=== PATIENT | male | born 1935 | race Caucasian/White ===

== ENCOUNTER 2018-08-04 07:04 | Observation (INO) ==
--- NOTE | 2018-08-04 07:18 | Emergency Department Note ---
Disposition Clinical Impression: Vertigo, Right leg weakness, Numbness and tingling of right leg, Facial droop Disposition: Admitted As Inpatient Condition: Good Referrals: Miguel A Akbar DO [Primary Care Provider] - Forms: ED Satisfaction Letter Time of Disposition: 07:47 Neuro HPI - General Chief Complaint: ED Neuro Symptoms/Deficit Stated Complaint: dizziness and fall, r leg numb/right facial droop Time Seen by Provider: 08/04/18 07:05 Source: patient, EMS Mode of arrival: EMS Limitations: no limitations Nursing Notes Reviewed: Yes Vital Signs Reviewed: Yes - History of Present Illness HPI Narrative: Patient is an 82-year-old male with past medical history history of CVA, residual right lower extremity weakness and decreased sensation, high cholesterol, takes daily simvastatin and aspirin. Presents today due to concern for right lower extremity weakness and numbness that are worse than usual baseline, right-sided facial droop, dizziness. Presented via EMS. EMS reported glucose of 200s. Patient states that he went to bed around 9 PM last night, woke up at 6 AM this morning and had dizziness. He states that the dizziness worse and when he sat up but did not worsen when he moved his head left and right. He describes as the room spinning. He also admits to increased weakness and numbness of the right lower extremity. He does report a residual baseline weakness and numbness of the right lower extremity but states that this is worse today. He also admits to a fall prior to arrival due to the dizziness that he was experiencing when he woke up. Denies any injuries of his extremities. Denies any chest pain, shortness breath, nausea, vomiting, fevers, diarrhea, abdominal pain. He does report that he took 2 baby aspirin this morning prior to arrival to see if this would help with his dizziness and states that it did not. Denies taking any other medications, any other blood thinners. Denies any other numbness, tingling, weakness anywhere else on any other extremities. No visual changes. No headaches. - Related Data Home Medications: Home Medications Medication Instructions Recorded Confirmed Aspirin 650 mg PO ONCE 08/04/18 08/04/18 Aspirin [Lo-Dose Aspirin EC] 81 mg PO HS 08/04/18 08/04/18 Cholecalciferol (D-3) [Vitamin D] 2,000 unit PO DAILY 08/04/18 08/04/18 Metformin HCl [Metformin HCl ER] 500 mg PO HS 08/04/18 08/04/18 Simvastatin [Zocor] 20 mg PO HS 08/04/18 08/04/18 Allergies/Adverse Reactions: Allergies Allergy/AdvReac Type Severity Reaction Status Date / Time lidocaine Allergy Swelling Verified 08/04/18 08:04 of Lip/Tongue/Throat food starch Allergy Severe Anaphylaxis Uncoded 08/04/18 08:00 All systems ED: reviewed and negative except as stated. Constitutional: Denies: fever Cardiovascular: Denies: chest pain Respiratory: Denies: cough, dyspnea Gastrointestinal: Denies: abdominal pain, nausea, vomiting Genitourinary: Denies: urgency, dysuria Integumentary: Denies: rash Neurological: Denies: headache, weakness, numbness Past Medical History - Past Medical History Attestation: Yes The following information was validated with the patient. Source: patient Medical history: Reports: CVA, diabetes, kidney stones Surgical history: Reports: other Psychiatric history: Reports: no psych history - Social History Smoking Status: Never smoker Smokeless Tobacco Status: No Alcohol use: Reports: none Drug use: Reports: none Physical Exam - General Limitations: no limitations General appearance: alert, in no apparent distress - Head Head exam: atraumatic, normocephalic, normal inspection - Eye Eye exam: Present: normal appearance, PERRL, EOMI - ENT ENT exam: normal oropharynx, mucous membranes moist, other (right nasolabial fold flattening) - Neck Neck exam: Present: normal inspection, full ROM, trachea midline - Chest Chest inspection: Present: normal inspection, symmetric chest wall rise - Respiratory Respiratory exam: Present: normal lung sounds bilaterally - Cardiovascular Cardiovascular exam: Present: regular rate, normal rhythm, normal heart sounds - Abdominal Exam Abdominal exam: Present: soft, Non-Tender. Absent: tenderness, distention, guarding, rebound, rigidity - Extremities Exam Extremities exam: Present: normal inspection, full ROM. Absent: tenderness, pedal edema - Neurological Exam Neurological exam: Present: alert, oriented X3 - Expanded Neurological Exam Patient oriented to: Present: person, place, time Speech: Present: fluid speech Cranial nerves: EOM function (II, III, IV, ): Normal, facial sensation (V): Normal, facial palsy (VII): Abnormal Right (right nasolablial flattening) Cerebellar function: finger to nose: Normal Motor strength - LUE: 5/5 Motor strength - RUE: 5/5 Motor strength - RLE: 4/5 Sensory exam upper extremity: light touch: Normal Sensory exam lower extremity: light touch: Abnormal Right (decreased sensation right leg, worse from baseline from previous stroke) Coma Scale Eye Opening: Spontaneous Coma Scale Motor Response: Obeys Commands Coma Scale Verbal Response: Oriented Coma Scale Total: 15 - Psychiatric Psychiatric exam: Present: normal affect, normal mood - Skin Skin exam: Present: warm, dry, intact, normal color Course Course Narrative: Physical exam shows drift of the right lower extremity, decreased sensation of the right lower extremity, mild droop of the right nasolabial fold. NIH 2. No overt ataxia noted on exam. Patient's vertigo was not able to be reproduced with head motion testing on my exam. With current complaints, there is concern for stroke, we will likely posterior strep due to symptoms of dizziness. We will proceed with stroke alert as this is within the 10 hour time window. Basic labs, CBC, BMP, troponin, EKG, chest x-ray, CT the head are ordered. After workup, we will likely admit to the hospitalist for MRI for further evaluation of posterior circulation. 19:[address] negative for any acute intracranial abnormality. Repeat NIH score by [facility] neurologist on telemetry stroke can was NIH of 1. Patient has right nasolabial droop but no longer has any right lower extremity drift. She recommends further imaging such as MRI and MRA of the head and neck for further assessment. She does believe that patient can stay here for further care. Discussed this with the patient and he was agreeable with this plan. Currently waiting on labs come back. EKG shows sinus bradycardia with no acute ST elevation or depression. Patient did receive aspirin at home prior to arrival. Waiting on lab work and chest x-ray and we will admit for further stroke workup. 19:48 labs show hyperglycemia. Troponin negative. Chest x-ray negative for any acute cardiopulmonary process. We will proceed with admission. Patient was given meclizine for vertigo. Vital Signs Temperature 98.6 F 08/04/18 07:23 Pulse Rate 56 08/04/18 07:23 Respiratory Rate 20 08/04/18 07:23 Blood Pressure 177/88 08/04/18 07:23 O2 Sat by Pulse Oximetry 100 08/04/18 07:23 Temperature 98.6 F 08/04/18 07:23 Pulse Rate 56 08/04/18 07:45 Respiratory Rate 20 08/04/18 07:45 Blood Pressure 142/131 08/04/18 07:45 O2 Sat by Pulse Oximetry 100 08/04/18 07:32 Oxygen Delivery Oxygen Delivery Room Air Neuro Symptoms/Deficit - MDM Narrative Medical decision making narrative: Physical exam shows drift of the right lower extremity, decreased sensation of the right lower extremity, mild droop of the right nasolabial fold. NIH 2. No overt ataxia noted on exam. Patient's vertigo was not able to be reproduced with head motion testing on my exam. With current complaints, there is concern for stroke, we will likely posterior strep due to symptoms of dizziness. We will proceed with stroke alert as this is within the 10 hour time window. Basic labs, CBC, BMP, troponin, EKG, chest x-ray, CT the head are ordered. After workup, we will likely admit to the hospitalist for MRI for further evaluation of posterior circulation. 19:[address] negative for any acute intracranial abnormality. Repeat NIH score by [facility] neurologist on telemetry stroke can was NIH of 1. Patient has right nasolabial droop but no longer has any right lower extremity drift. She recommends further imaging such as MRI and MRA of the head and neck for further assessment. She does believe that patient can stay here for further care. Discussed this with the patient and he was agreeable with this plan. Currently waiting on labs come back. EKG shows sinus bradycardia with no acute ST elevation or depression. Patient did receive aspirin at home prior to arrival. Waiting on lab work and chest x-ray and we will admit for further stroke workup. 19:48 labs show hyperglycemia. Troponin negative. Chest x-ray negative for a ny acute cardiopulmonary process. We will proceed with admission. Patient was given meclizine for vertigo. - Medical Records Medical records reviewed: Yes I reviewed the patient's medical records. - Lab Data Lab results reviewed: Yes I reviewed the patient's lab results. Result diagrams: 08/04/18 07:17 08/04/18 07:17 Lab Results 08/04/18 08/04/18 08/04/18 Range/Units 07:15 07:17 07:17 WBC 7.4 (4.3-11.1) K/mcL RBC 4.22 (4.19-5.50) M/mcL Hgb 13.2 (12.9-16.9) g/dL Hct 37.5 (37.5-50.1) % MCV 88.9 (83.0-100.0) fL MCH 31.3 (28.0-33.3) pg MCHC 35.2 (31.6-35.5) g/dL RDW 12.6 (11.5-14.5) % Plt Count 144 (140-400) K/mcL MPV 10.4 (9.4-12.4) fL PT 12.7 H (9.4-12.1) Seconds INR 1.1 APTT 31.8 (26.0-36.0) Seconds Sodium (136-145) mEq/L Potassium (3.5-5.1) mEq/L Chloride (98-107) mEq/L Carbon Dioxide (23-29) mEq/L BUN (8-23) mg/dL Creatinine (0.70-1.30) mg/dL Est GFR ( Amer) (> 60) Est GFR (Non-Af Amer) (> 60) BUN/Creatinine Ratio (6-26) Glucose (70-105) mg/dL POC Glucose 224 H (70-99) mg/dL Calculated Osmolality (280-300) Calcium (8.6-10.3) mg/dL Troponin I (< 0.04) ng/mL 08/04/18 Range/Units 07:17 WBC (4.3-11.1) K/mcL RBC (4.19-5.50) M/mcL Hgb (12.9-16.9) g/dL Hct (37.5-50.1) % MCV (83.0-100.0) fL MCH (28.0-33.3) pg MCHC (31.6-35.5) g/dL RDW (11.5-14.5) % Plt Count (140-400) K/mcL MPV (9.4-12.4) fL PT (9.4-12.1) Seconds INR APTT (26.0-36.0) Seconds Sodium 137 (136-145) mEq/L Potassium 4.2 (3.5-5.1) mEq/L Chloride 105 (98-107) mEq/L Carbon Dioxide 26 (23-29) mEq/L BUN 13 (8-23) mg/dL Creatinine 0.80 (0.70-1.30) mg/dL Est GFR ( Amer) > 60 (> 60) Est GFR (Non-Af Amer) > 60 (> 60) BUN/Creatinine Ratio 16 (6-26) Glucose 234 H (70-105) mg/dL POC Glucose (70-99) mg/dL Calculated Osmolality 292 (280-300) Calcium 9.4 (8.6-10.3) mg/dL Troponin I < 0.03 (< 0.04) ng/mL - Radiology Data Radiology results reviewed: Yes I reviewed the patient's radiology results. Head CT 08/04/18 07:15 IMPRESSION: No acute intracranial abnormality. Findings were discussed with Alejandro Renteria at 7:42 am on 08/04/2018. D/ / Raoul Jones MD / Raoul Jones MD Interpreting Provider: Raoul Jones MD Chest X-Ray 08/04/18 07:16 IMPRESSION: 1. No active pulmonary disease. D/ / Cal Ramirez MD / Cal Ramirez MD Interpreting Provider: Cal Ramirez MD - EKG Data EKG attestation: Yes I reviewed and interpreted this EKG. EKG results narrative: 08/04/2018 at 07:15. Sinus rhythm. Rate 55. MA 171. QRS 116. QTC 431. Normal axis. No acute ST elevation or depression. NIH Stroke Scale - Level of Consciousness LOC: Alert - LOC Questions LOC Questions: Answers both correctly - LOC Commands LOC Commands: Performs both correctly - Best Gaze Best Gaze: Normal - Visual Visual: No visual loss - Facial Palsy Facial Palsy: Minor asymmetry on smiling, flattened nasolabial fold - Motor Arms Motor Arm-Left: No drift for 10 seconds Motor Arm-Right: No drift for 10 seconds - Motor Legs Motor Leg-Left: No drift for 5 seconds Motor Leg-Right: Drift, does NOT hit bed - Limb Ataxia Limb Ataxia: Absent of affected limb too weak to perform exam - Sensory Sensory: Normal - Best Language Best Language: No aphasia - Dysarthria Dysarthria: Normal - Extinction and Inattention Extinction and Inattention: Normal - NIHSS Total Score NIHSS Total Score: 2 TPA Checklist - Eligibilty for IV tPA 1. LKW equal to or less than 4.5 hours be before treatment: No - LKW: 3-4.5 hrs Add. Warnings/Precautions Patient/family understanding: The patient/family members have been counseled and understood the risk, benefit, and alternatives of treatment. S.B.A.R. - S.B.A.R. Situation: Demographics, MOA Background: Presenting Complaint, Relevant PMH, Meds, & Allergies Assessment: Vital Signs, Course and respsone to treatment, Exam Concerns, Patient/Family Expectation, Pertinant Lab Results Recommendation: Barrier(s) to disposition, Recommendation based on pending studies, treatments, or consults S.B.A.R. Report Given to: Dr. Gary
--- NOTE | 2018-08-04 07:19 | Emergency Department Note ---
Disposition Clinical Impression: Vertigo, Right leg weakness, Numbness and tingling of right leg, Facial droop Disposition: Admitted As Inpatient Condition: Good General Adult HPI - General Chief complaint: ED Neuro Symptoms/Deficit Stated complaint: dizziness and fall, r leg numb/right facial droop Time Seen by Provider: 08/04/18 07:05 - Related Data Home Medications Medication Instructions Recorded Confirmed Aspirin [Lo-Dose Aspirin EC] 81 mg PO HS 08/04/18 08/04/18 Cholecalciferol (D-3) [Vitamin D] 2,000 unit PO DAILY 08/04/18 08/04/18 Metformin HCl [Metformin HCl ER] 500 mg PO HS 08/04/18 08/04/18 RX: Aspirin 650 mg PO ONCE 08/04/18 08/04/18 RX: Simvastatin [Zocor] 20 mg PO HS 08/04/18 08/04/18 Allergies Allergy/AdvReac Type Severity Reaction Status Date / Time lidocaine Allergy Swelling Verified 08/04/18 08:04 of Lip/Tongue/Throat food starch Allergy Severe Anaphylaxis Uncoded 08/04/18 08:00 Past Medical History - Past Medical History Medical history: Reports: diabetes, kidney stones Surgical history: Reports: other Psychiatric history: Reports: no psych history - Social History Smoking Status: Never smoker Smokeless Tobacco Status: No Alcohol use: Reports: none Drug use: Reports: none Course Vital Signs Temperature 98.6 F 08/04/18 07:23 Pulse Rate 56 08/04/18 07:23 Respiratory Rate 20 08/04/18 07:23 Blood Pressure 177/88 08/04/18 07:23 O2 Sat by Pulse Oximetry 100 08/04/18 07:23 Temperature 98.2 F 08/04/18 14:08 Pulse Rate 64 08/04/18 14:08 Respiratory Rate 18 08/04/18 14:08 Blood Pressure 146/66 08/04/18 14:08 O2 Sat by Pulse Oximetry 99 08/04/18 14:08 Oxygen Delivery Oxygen Delivery Room Air Medical Decision Making - Lab Data Result diagrams: 08/04/18 07:17 08/04/18 07:17 Lab Results 08/04/18 08/04/18 08/04/18 Range/Units 07:15 07:17 07:17 WBC 7.4 (4.3-11.1) K/mcL RBC 4.22 (4.19-5.50) M/mcL Hgb 13.2 (12.9-16.9) g/dL Hct 37.5 (37.5-50.1) % MCV 88.9 (83.0-100.0) fL MCH 31.3 (28.0-33.3) pg MCHC 35.2 (31.6-35.5) g/dL RDW 12.6 (11.5-14.5) % Plt Count 144 (140-400) K/mcL MPV 10.4 (9.4-12.4) fL PT 12.7 H (9.4-12.1) Seconds INR 1.1 APTT 31.8 (26.0-36.0) Seconds Sodium (136-145) mEq/L Potassium (3.5-5.1) mEq/L Chloride (98-107) mEq/L Carbon Dioxide (23-29) mEq/L BUN (8-23) mg/dL Creatinine (0.70-1.30) mg/dL Est GFR ( Amer) (> 60) Est GFR (Non-Af Amer) (> 60) BUN/Creatinine Ratio (6-26) Glucose (70-105) mg/dL POC Glucose 224 H (70-99) mg/dL Calculated Osmolality (280-300) Calcium (8.6-10.3) mg/dL Troponin I (< 0.04) ng/mL 08/04/18 Range/Units 07:17 WBC (4.3-11.1) K/mcL RBC (4.19-5.50) M/mcL Hgb (12.9-16.9) g/dL Hct (37.5-50.1) % MCV (83.0-100.0) fL MCH (28.0-33.3) pg MCHC (31.6-35.5) g/dL RDW (11.5-14.5) % Plt Count (140-400) K/mcL MPV (9.4-12.4) fL PT (9.4-12.1) Seconds INR APTT (26.0-36.0) Seconds Sodium 137 (136-145) mEq/L Potassium 4.2 (3.5-5.1) mEq/L Chloride 105 (98-107) mEq/L Carbon Dioxide 26 (23-29) mEq/L BUN 13 (8-23) mg/dL Creatinine 0.80 (0.70-1.30) mg/dL Est GFR ( Amer) > 60 (> 60) Est GFR (Non-Af Amer) > 60 (> 60) BUN/Creatinine Ratio 16 (6-26) Glucose 234 H (70-105) mg/dL POC Glucose (70-99) mg/dL Calculated Osmolality 292 (280-300) Calcium 9.4 (8.6-10.3) mg/dL Troponin I < 0.03 (< 0.04) ng/mL Attestation Statement - Attestation Attestation: I examined this patient and my medical decision-making was reviewed with the Resident Physician. I agree with the documented findings, disposition and treatment plan as described except to the extent set forth below. [id number] time provided Patient arrives by EMS from home. He complains of dizziness. He complains of numbness of his right foot. He is alert and lucid and appears in no acute distress on exam. Please see resident's note for full neurologic exam. NIH 2. He went to bed at 21:00 last night symptom-free. He awoke at 06:00 with symptoms this morning.
[2018-08-04 07:27] LABS: Hematocrit 37.5 % (37.5-50.1); Hemoglobin 13.2 g/dL (12.9-16.9); Mean Corpuscular HGB Conc 35.2 g/dL (31.6-35.5); Mean Corpuscular Hemoglobin 31.3 pg (28.0-33.3); Mean Corpuscular Volume 88.9 fL (83.0-100.0); Mean Platelet Volume 10.4 fL (9.4-12.4); Platelet Count 144 K/mcL (140-400); Red Blood Count 4.22 M/mcL (4.19-5.50); Red Cell Distribution Width 12.6 % (11.5-14.5)
[2018-08-04 07:43] LABS: INR 1.1; Prothrombin Time 12.7 Seconds (9.4-12.1)
[2018-08-04 07:46] LABS: Activated Partial Thrombo Time 31.8 Seconds (26.0-36.0)
[2018-08-04 07:47] LABS: BUN/Creatinine Ratio 16 (6-26); Blood Urea Nitrogen 13 mg/dL (8-23); Calcium 9.4 mg/dL (8.6-10.3); Carbon Dioxide 26 mEq/L (23-29); Chloride 105 mEq/L (98-107); Glucose 234 mg/dL (70-105); Osmolality,Calculated 292 (280-300); Potassium 4.2 mEq/L (3.5-5.1); Sodium 137 mEq/L (136-145); Troponin I < 0.03 ng/mL (< 0.04); eGFR For Non-African Americans > 60 (> 60)
--- NOTE | 2018-08-04 08:25 | Internal Med History&Physical ---
Date of Encounter: 08/04/18 Time of Encounter: 08:20 Internal Medicine - H&P: HPI Chief complaint: Dizziness Admitted From: Home Plans for Post Hospital Care: Home History of present illness: Mr. 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 As per patient he woke up about 4 AM in the morning and immediately felt dizzy as he was laying down. He sat up in bed and his dizziness became better he walked to the bathroom and had a fall as the railing that he normally holds onto to get up from the toilet broke off but he denies any head trauma. He went back to bed to lay down but he immediately began to become dizzy again. He describes his dizziness as the sensation of the room spinning around him worse when he lays down and better when he sits that. Rapid head movements from [id number] exacerbates his dizziness. In addition to dizziness he also complains of ringing in his ears. He denies recent upper respiratory tract infections, difficulty hearing, head trauma, syncope, loss of consciousness, extremity weakness, headache or vision loss. According to and son at bedside they also feel as though he has a right sided facial droop at the angle of his mouth which is new. He denies fever, chills, diarrhea, nausea, vomiting, chest pain, shortness of breath, palpitations, heat or cold intolerance, tingling, weakness of his extremities. EMS was called and he had taken 2 aspirins while at home to see if it will help the dizziness but it did not In the ED stroke alert was called, [facility] recommended further stroke workup and no TPA was given.Repeat NIH score by [facility] neurologist on telemetry stroke can was NIH of 1. CT head performed in the ED was negative for any acute abnormalities. EKG with sinus bradycardia with no acute ST-T changes. 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 - Social History Smoking Status: Never smoker Smokeless Tobacco Status: No Alcohol use: none Drug use: none - Family History Father Adopted: No Living Status: Hx Family Cardiac Disorders: No Hx Family Respiratory Disorders: No Hx Family Cancer: No Hx Family GI Disorders: No Hx Family Endocrine Disorder: No Hx Family Neuromuscular Disorders: No Hx Family Neurologic Disorders: No Hx Family HEENT Disorders: No Hx Family Autoimmune Disorders: No Mother Living Status: Internal Medicine - H&P: Meds Aspirin 650 mg PO ONCE 08/04/18 [History] Aspirin [Lo-Dose Aspirin EC] 81 mg PO HS 08/04/18 [History] Cholecalciferol (D-3) [Vitamin D] 2,000 unit PO DAILY 08/04/18 [History] Metformin HCl [Metformin HCl ER] 500 mg PO HS 08/04/18 [History] Simvastatin [Zocor] 20 mg PO HS 08/04/18 [History] Allergy/AdvReac Type Severity Reaction Status Date / Time lidocaine Allergy Swelling Verified 08/04/18 08:04 of Lip/Tongue/Throat food starch Allergy Severe Anaphylaxis Uncoded 08/04/18 08:00 All Systems PM: review of systems was performed and is negative for pertinent findings except as documented above in the HPI. - Constitutional Vitals: Temp Pulse Resp BP Pulse Ox 98.6 F 56 20 142/131 100 08/04/18 07:23 08/04/18 07:45 08/04/18 07:45 08/04/18 07:45 08/04/18 07:32 Exam: General: Patient is alert, oriented, no acute distress, Head: atraumatic, normocephalic, Eye: normal appearance, PERRL, no scleral icterus, no conjunctival injection ENT: mucous membranes moist, normal external ear exam Neck: normal inspection, trachea midline, full ROM, no carotid bruits Chest: normal inspection, symmetric chest rise Respiratory: Good respiratory effort. Bilateral breath sounds are clear without wheezing, crackles, or rhonchi. Cardiovascular: Bradycardic. s1 and s2 No clicks, rubs, gallops, or murmors. Abdomen: Bowel sounds present normoactive x-4 quadrants. Abdomen is soft, non distended. no Epigastric tenderness. No guarding or rebound. No organomegaly noted, obese musculoskeletal: Spontaneously moving all extremities. no edema, no calf tenderness Skin: warm, dry, intact. Neuro: Alert and oriented x4. Sensation light touch intact. Cranial nerves 2- 12 is intact. Not aphasic, , rapid hand movements intact, [id number]-yc-[id number] intact, [id number]-[id number] intact, no nystagmus Psych: Patient's affect is normal Internal Med - H&P Results - Labs CBC & Chem 7: 08/04/18 07:17 08/04/18 07:17 Labs: Short CBC 08/04/18 Range/Units 07:17 WBC 7.4 (4.3-11.1) K/mcL Hgb 13.2 (12.9-16.9) g/dL Hct 37.5 (37.5-50.1) % Plt Count 144 (140-400) K/mcL BMP 08/04/18 07:17 Sodium 137 Potassium 4.2 Chloride 105 Carbon Dioxide 26 BUN 13 Creatinine 0.80 Glucose 234 H Calcium 9.4 Cardiac Enzymes 08/04/18 Range/Units 07:17 Troponin I < 0.03 (< 0.04) ng/mL - EKG Data -: EKG Interpreted by Myself (Sinus bradycardia, nonspecific intraventricular conduction delay, repol abn) - EKG Data Prior EKG available for review: yes When compared to previous EKG: there is no significant change - Impressions ITS Impressions Head CT 08/04/18 07:15 IMPRESSION: No acute intracranial abnormality. Findings were discussed with Alejandro Renteria at 7:42 am on 08/04/2018. D/ / Raoul Jones MD / Raoul Jones MD Interpreting Provider: Raoul Jones MD Chest X-Ray 08/04/18 07:16 IMPRESSION: 1. No active pulmonary disease. 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 labs Keep systolic BP less than 220 and diastolic BP less than 120 Maintain LDL less than 75 DVT prophylaxis with heparin subcutaneous and SCDs Fall, aspiration, seizure precautions (2) Vertigo Current Visit: Yes Status: Acute Assessment and plan: Dizziness better when laying down, tinnitus BPPV versus Meniere's disease rule out stroke and other etiologies Meclizine when necessary for dizziness Rest of the management and workup as per above Neurology consulted (3) History of stroke Current Visit: Yes Status: Acute Assessment and plan: History of left frances infarct in 2014 with residual right lower extremity weakness Management as per above (4) Diabetes mellitus Current Visit: No Status: Acute Assessment and plan: A1c in a.m. We will start sliding scale adjust as per fingersticks Qualifiers: Diabetes mellitus type: type 2 Diabetes mellitus manager front office insulin use: without manager front office use Diabetes mellitus complication status: without complication Qualified Code(s): E11.9 - Type 2 diabetes mellitus without complications (5) Hyperlipidemia Current Visit: Yes Status: Acute Assessment and plan: Lipid panel in a.m. Continue with home statins Qualifiers: Hyperlipidemia type: unspecified Qualified Code(s): E78.5 - Hyperlipidemia, unspecified (6) DVT prophylaxis Current Visit: Yes Status: Acute Assessment and plan: Heparin subcutaneous - Time Spent With Patient Total time spent is greater than 50% in coordination of care (as documented) at patient's floor/unit and/or counseling patient:
[2018-08-04] MEDS ORDERED: Naloxone 0.4 MG/ML INJ IVP PRN (08:36)
[2018-08-04] MEDS ORDERED: Acetaminophen 325 MG TABLET PO PRN (08:36)
[2018-08-04] MEDS ORDERED: D5% in Water 1,000 ML IVC PRN (08:43)
[2018-08-04] MEDS ORDERED: *HR* Dextrose 50 % in Water (Syg) 50 ML SYRINGE IVP PRN (08:43)
[2018-08-04] MEDS ORDERED: Dextrose Gel 15 GM/37.5 ML TUBE PO PRN ×2 (08:43)
[2018-08-04] MEDS ORDERED: Ondansetron 4 MG/2 ML VIAL IVP PRN (08:46)
[2018-08-04] MEDS: Insulin LISPRO 300 UNITS/3 ML VIAL SQ SCH ×2 (13:32→17:19)
--- NOTE | 2018-08-04 13:43 | Neurology - Consult Note ---
<Bird Conway - Last Filed: 08/04/18 16:04> Date of Encounter: 08/04/18 Time of Encounter: 13:43 Assessment and Plan (1) Vertigo Current Visit: Yes Status: Acute Patient is intact cerebellar function per neurological exam. [place]-Hallpike maneuver negative. Patient reports his vertigo has resolved recommend ENT evaluation for hearing and VNG outpatient. (2) Ataxic gait Current Visit: Yes Status: Acute patient had ataxic gait on exam with 3+ b/l LE relfexes cervical myelopathy can have this type of presentation. We will obtain MRI of C- spine (3) Transient cerebral ischemia Current Visit: Yes Status: Ruled-out MRI brain negative and shows remote pontine infarct on the left and bilateral basal ganglia lacunar infarcts. This may explain patient's mild right facial drooping neuro exam non-focal and non-lateralizing not CVA or TIA Likely patient's symptoms of vertigo are peripheral in etiology. Qualifiers: Transient cerebral ischemia type: unspecified Qualified Code(s): G45.9 - Transient cerebral ischemic attack, unspecified (4) Hyperlipidemia Current Visit: Yes Status: Acute Qualifiers: Hyperlipidemia type: unspecified Qualified Code(s): E78.5 - Hyperlipidemia, unspecified History of Present Illness Chief complaint: dizziness HPI: Mr. Brand is a 82 year old male with hx of CVA with residual right lower extremity weakness presented with cc of dizziness that started at 4AM. Patient reporting having a spinning sensation while laying down flat in bed which resolved with sitting up. The sensation also worsened with moving his head left and right. He denied double vision, slurred speech, facial drooping, numbness, weakness, dysphasia. Reports high-pitched mild chronic tinnitus. Patient has history of previous left CVA with mild residual right-sided weakness. Patient also denied ear pain, ear discharge, congestion. Patient's symptoms continued at arrival to [place] emergency department at 6 AM. In the emergency department patient was given meclizine which improved his vertigo. And currently patient does not have symptoms even when moving his head laying down or sitting up. Patient was evaluated by [facility] neurology and TPA was not given. His NIH score was 1. 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 - Social History Smoking Status: Never smoker Smokeless Tobacco Status: No Alcohol use: none Drug use: none - Family History Father Adopted: No Living Status: Hx Family Cardiac Disorders: No Hx Family Respiratory Disorders: No Hx Family Cancer: No Hx Family GI Disorders: No Hx Family Endocrine Disorder: No Hx Family Neuromuscular Disorders: No Hx Family Neurologic Disorders: No Hx Family HEENT Disorders: No Hx Family Autoimmune Disorders: No Mother Living Status: Medications and Allergies Aspirin 650 mg PO ONCE 08/04/18 [History] Aspirin [Lo-Dose Aspirin EC] 81 mg PO HS 08/04/18 [History] Cholecalciferol (D-3) [Vitamin D] 2,000 unit PO DAILY 08/04/18 [History] Metformin HCl [Metformin HCl ER] 500 mg PO HS 08/04/18 [History] Simvastatin [Zocor] 20 mg PO HS 08/04/18 [History] Allergy/AdvReac Type Severity Reaction Status Date / Time lidocaine Allergy Swelling Verified 08/04/18 08:04 of Lip/Tongue/Throat food starch Allergy Severe Anaphylaxis Uncoded 08/04/18 08:00 All Systems: The remainder of the systems were reviewed and are negative Review of Systems: Constitutional: Denies fever, chills HEENT: Denies headache, trauma, blurry vision, eye discharge, ear pain, ear discharge neck pain, sore throat, rhinorrhea Heart: Denies chest pain palpitations, LE edema Lungs: Denies shortness of breath cough Abdomen: Denies abdominal pain nausea vomiting diarrhea MSK: Denies back pain, falls, joint pain Kidney: Denies dysuria, hematuria Skin: Denies rash, ulcers Neuro: As per history of present illness Psych: denies axniety, depression Physical Examination - Vital Signs Vital Signs: Initial Vital Signs Temp Pulse Resp BP Pulse Ox 98.6 F 56 20 177/88 100 08/04/18 07:23 08/04/18 07:23 08/04/18 07:23 08/04/18 07:23 08/04/18 07:23 - Exam Exam: General: pleasant, without distress HEENT: Head atraumatic, normocephalic, EOMI, PERRL, absent ear discharge or trauma, Moist Mucous Membranes, uvula midline Neck: nontender to palpation, absent lymphadenopathy, Cardiovascualr: Regular rate and rhythm with no murmur, absent gallops or rubs, absent pedal edema, radial pulses 2 out of 4 Lungs: Clear to auscultation bilaterally, not in respiratory distress Abdomen: Soft nontender, nondistended positive bowel sounds, absent hepatomegaly Skin: warm and dry, absent rash, absent open wounds and nodules MSK: absent clubbing, cyanosis, joints without swelling Psych: good insight and judgment Negative [place]-Hallpike maneuver bilaterally - Constitutional General appearance: comfortable - Neurologic Sensorimotor examination: intact Detailed motor examination: full strength in all major muscle groups Motor examination - right side: 01/30: deltoids, biceps, triceps, wrist flexion, wrist extension, ruby on rails web developer, hip flexors, tibialis Anterior, quadriceps, toe extension (EHL), plantarflexion Motor examination - left side: 01/30: deltoids, biceps, triceps, wrist flexion, wrist extension, hip flexors, ruby on rails web developer, quadriceps, tibialis Anterior, toe extension (EHL), plantarflexion Detailed sensory examination: intact Posture: other Reflex and gait examination: ataxic gate (Patient is able to ambulate with assistance. almost fell to the left.) Reflexes: Biceps: 2+, Triceps: 2+, Brachioradialis: 2+, Patella: 3+, Achilles: 3+ Mental Status Examination: awake, alert, oriented to person, oriented to place, oriented to time, follows commands appropriately, answers questions appropriately, no agnosia, no aphasia, no aproxia Cranial nerve examination: PERRL, EOMI, visual ames intact, sensory to face intact, mastication intact, no facial asymmetry is present, no dysarthria, hearing is intact symmetrically, soft palate elevates bilaterally upon phonation, flexes SCM and trapezius muscles symmetrically with full power, tongue protrudes midline, no atrophy or facial fasiculations present Cerebellar examination: no dysmetria, performs finger to nose and heel to celis symmetrically without ataxia, no difficulty with rapid alternating movements Results - Laboratory Findings CBC and BMP: 08/04/18 07:17 08/04/18 07:17 Abnormal lab findings: Abnormal lab results PT 12.7 Seconds (9.4-12.1) H 08/04/18 07:17 Glucose 234 mg/dL (70-105) H 08/04/18 07:17 POC Glucose 224 mg/dL (70-99) H 08/04/18 07:15 Consult Discharge Plan - Plan Referrals: Miguel A Akbar DO [Primary Care Provider] - <TaylorLoveluis f - Last Filed: 08/04/18 16:34> Date of Encounter: 08/04/18 History of Present Illness HPI: Mr. Brand is a 82 year old male All Systems: The remainder of the systems were reviewed and are negative Physical Examination - Vital Signs Vital Signs: Initial Vital Signs Temp Pulse Resp BP Pulse Ox 98.6 F 56 20 177/88 100 08/04/18 07:23 08/04/18 07:23 08/04/18 07:23 08/04/18 07:23 08/04/18 07:23 Results - Laboratory Findings CBC and BMP: 08/04/18 07:17 08/04/18 07:17 Abnormal lab findings: Abnormal lab results PT 12.7 Seconds (9.4-12.1) H 08/04/18 07:17 Glucose 234 mg/dL (70-105) H 08/04/18 07:17 POC Glucose 224 mg/dL (70-99) H 08/04/18 07:15 Urine Glucose (UA) 250 mg/dL (Normal) H 08/04/18 15:00
[2018-08-04] MEDS: Cholecalciferol (D-3) 1,000 UNIT TABLET PO SCH (14:00)
[2018-08-04] MEDS: *HR* Heparin 5,000 UNIT/ML VIAL SQ SCH ×2 (14:00→21:54)
[2018-08-04 15:13] LABS: Bilirubin,Urine Negative (Negative); Blood,Urine Negative (Negative); Clarity,Urine Clear (Clear); Color,Urine Yellow (Yellow); Glucose,Urine (UA) 250 mg/dL (Normal); Ketones,Urine Negative (Negative); Leukocyte Esterase,Urine Negative (Negative); Nitrite,Urine Negative (Negative); Protein,Urine Negative (Neg-Trace); Specific Gravity,Urine 1.019 (1.010-1.025); Urobilinogen,Urine Normal (Normal)
--- NOTE | 2018-08-04 21:09 | Electrocardiograph Report ---
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
[2018-08-05] MEDS: Insulin LISPRO 300 UNITS/3 ML VIAL SQ SCH ×2 (00:30→05:42)
[2018-08-05 04:31] LABS: Basophils % 0.5 %; Eosinophils # 0.2 K/mcL (0.0-0.6); Hematocrit 36.7 % (37.5-50.1); Hemoglobin 12.8 g/dL (12.9-16.9); Immature Granulocytes % 0.3 % (0-4); Lymphocytes # 2.1 K/mcL (0.6-4.6); Lymphocytes % 27.3 %; Mean Corpuscular HGB Conc 34.9 g/dL (31.6-35.5); Mean Corpuscular Hemoglobin 31.4 pg (28.0-33.3); Mean Corpuscular Volume 90.2 fL (83.0-100.0); Mean Platelet Volume 10.6 fL (9.4-12.4); Monocytes # 0.7 K/mcL (0.0-1.3); Monocytes % 9.4 %; Neutrophils # 4.6 K/mcL (1.6-8.9); Platelet Count 147 K/mcL (140-400); Red Blood Count 4.07 M/mcL (4.19-5.50); Red Cell Distribution Width 12.7 % (11.5-14.5); Segmented Neutrophils % 60.5 %
[2018-08-05 04:51] LABS: BUN/Creatinine Ratio 18 (6-26); Blood Urea Nitrogen 16 mg/dL (8-23); Calcium 9.4 mg/dL (8.6-10.3); Carbon Dioxide 26 mEq/L (23-29); Chloride 108 mEq/L (98-107); Chol/HDL Ratio 2.1 (0-4.9); Cholesterol 92 mg/dL (< 200); Glucose 111 mg/dL (70-105); HDL Cholesterol 43 mg/dL (40-59); LDL Cholesterol,Calculated 37 mg/dL (0-99); Osmolality,Calculated 296 (280-300); Potassium 3.7 mEq/L (3.5-5.1); Sodium 142 mEq/L (136-145); Triglycerides 61 mg/dL (< 150); eGFR For Non-African Americans > 60 (> 60)
[2018-08-05 05:04] LABS: Thyroid Stimulating Hormone 1.676 mcIU/mL (0.340-5.600)
[2018-08-05] MEDS: *HR* Heparin 5,000 UNIT/ML VIAL SQ SCH (05:45)
[2018-08-05 06:44] VITALS: BP 134/64
[2018-08-05] MEDS: Cholecalciferol (D-3) 1,000 UNIT TABLET PO SCH (08:18)
[2018-08-05 08:26] LABS: Estimated Average Glucose 151 mg/dl; Hemoglobin A1C 6.9 %
--- NOTE | 2018-08-05 08:45 | Discharge Summary ---
- NOTES TO OUTPATIENT PROVIDER Notes to Outpatient Provider: f/u with PCP in one week. Please take Meclizine 12.5mg PO TID as needed for vertigo / dizziness Orders not resulted at time of discharge: Pending orders 08/06/18 04:00 Basic Metabolic Panel AM 0400 Complete Blood Count [HEME] AM 0400 Date of Encounter: 08/05/18 Time of Encounter: 08:41 - Discharge Diagnosis (1) Transient cerebral ischemia Priority: Primary Status: Ruled-out (2) Vertigo Priority: Primary Status: Acute (3) Hyperlipidemia Priority: Secondary Status: Acute Qualifiers: Hyperlipidemia type: unspecified Qualified Code(s): E78.5 - Hyperlipidemia, unspecified (4) Ataxic gait Priority: Secondary Status: Acute Hospital course: Mr. Brand is a 82 year old male with hx of CVA with residual right lower extremity weakness presented with cc of dizziness that started at 4AM y/d. Patient reporting having a spinning sensation while laying down flat in bed which resolved with sitting up. The sensation also worsened with moving his head left and right. He denied double vision, slurred speech, facial drooping, numbness, weakness, dysphasia. Reports high-pitched mild chronic tinnitus. Patient has history of previous left CVA with mild residual right-sided weakness. In the emergency department patient was given meclizine which improved his vertigo. Patient was evaluated by [facility] neurology and TPA was not given. His brain MRI came back is negative for any acute ischemia/instruction, it did show remote left pontine infarct and bilateral basal ganglia lacunar infarct. His MRI of the spine did showed mild multilevel degenerative disease. Today patient is alert, awake and oriented times 3. Stated his dizziness completely resolved. At this point his ataxic gait/dizziness might be due to vertigo. So recommend to take meclizine as needed for verrtigo symptoms.. If symptoms persist recommend to follow up with ENT as an outpatient - Time Spent with Patient Total time spent providing and/or coordinating discharge services: - Discharge Medications Prescriptions: Meclizine [Antivert] 12.5 mg PO TID PRN #30 tablet PRN Reason: Dizziness Home Medications: Cholecalciferol (D-3) [Vitamin D] 2,000 unit PO DAILY 08/04/18 [History] Metformin HCl [Metformin HCl ER] 500 mg PO HS 11/07/18 [History] Simvastatin [Zocor] 20 mg PO HS 08/04/18 [History] Aspirin [Lo-Dose Aspirin EC] 81 mg PO DAILY #0 08/05/18 [Rx] Meclizine [Antivert] 12.5 mg PO TID PRN #30 tablet 08/05/18 [Rx] Allergies/Adverse Reactions: Allergy/AdvReac Type Severity Reaction Status Date / Time lidocaine Allergy Swelling Verified 08/04/18 08:04 of Lip/Tongue/Throat food starch Allergy Severe Anaphylaxis Uncoded 08/04/18 08:00 Date of admission: 08/04/18 12:13 Primary care physician: Miguel A Akbar DO Consults: 08/04/18 08:35 Consult to Nutrition [CONS] Routine Comment: Consulting Provider: NUTRITION Reason for Dietary Consult: PO Supplementation Consult to Physical Therapy [CONS] Routine Comment: Evaluate, develop and implement POC Reason for Consult: dispostion Does patient have active BEDREST order?: No Is patient medically & hemodynamically stable?: Yes Patient assessed for mobility or mobilized this visit?: Yes OT [Consult to Occupational Therapy] [CONS] Routine Comment: Evaluate, develop and implement POC Reason for Consult: disposition Does patient have active BEDREST order?: No Is patient medically & hemodynamically stable?: Yes Patient assessed for mobility or mobilized this visit?: Yes 08/04/18 08:36 Consult to Neurology [CONS] Routine Consulting Provider: Neurology [facility] Reason for Consult: TIA versus stroke, BPPV versus Meniere's disease Call Completed: No - Constitutional Vitals: Temp Pulse Resp BP Pulse Ox 97.9 F 47 16 134/64 99 08/05/18 06:42 08/05/18 06:42 08/05/18 06:42 08/05/18 06:42 08/05/18 06:42 General appearance: Present: A&O X 3 Exam: Gen: Alert, awake, Oriented to time,place and person Chest: Diminished breath sounds B/L, No wheezing, No crackles, No rales Heart: S1S2+ RRR No murmurs Abd: Soft, NT, BS +, No organomegaly Ext: No edema, pulses are palpable, No calf tenderness Neuro : Benign findings Skin: No rash. - Patient Status Disposition: Home, Self-Care Condition: Good Overall status at discharge: patient is back to baseline - Discharge Instructions Follow Up With: Miguel A Akbar DO [Primary Care Provider] - (Your appointment has been requested. Our offices will call you with an appointment time and date. ) - Diet and Activity Activity: as per physical therapy, increase activity as tolerated Diet: low salt diet
--- NOTE | 2018-08-05 09:54 | Neurology Progress Note ---
Date of Encounter: 08/05/18 Time of Encounter: 09:00 Assessment and Plan (1) Vertigo Current Visit: Yes Status: Acute Likely peripheral etiology. No LICENSED BONDSMAN pathology. Currently no significant neurological deficits, except slight ataxia but it also improved. Recommend outpatient ENT evaluation, may benefit from hearing test, VNG and vestibular rehabilitation Subjective Principal diagnosis: Dizziness, BVVP Interval history: Patient seen and examined and he is feeling back to normal today. He is no longer dizzy. MRI of cervical spine showed no spinal cord pathology. Objective - Constitutional Vitals: Temp Pulse Resp BP Pulse Ox 97.9 F 47 16 134/64 99 08/05/18 06:42 08/05/18 06:42 08/05/18 06:42 08/05/18 06:42 08/05/18 06:42 - Neurological Exam Sensorimotor examination: Present: intact Motor Examination: Present: full strength in all major muscle groups Motor examination - right side: 5/5: deltoids, biceps, triceps, wrist flexion, wrist extension, tobacco warehouse agent, hip flexors, tibialis Anterior, quadriceps, toe extension (EHL), plantarflexion Motor examination - left side: 5/5: deltoids, biceps, triceps, wrist flexion, wrist extension, hip flexors, tobacco warehouse agent, quadriceps, tibialis Anterior, toe extension (EHL), plantarflexion Sensation intact: Present: intact Posture: Present: other (None) Reflex and gait examination: ataxic gate (slgihtly, improved) Reflexes: Biceps: 2+, Triceps: 2+, Brachioradialis: 2+, Patella: 2+, Achilles: 2+ Mental Status Examination: Present: awake, alert, oriented to person, oriented to place, oriented to time, follows commands appropriately, answers questions appropriately, no agnosia, no aphasia, no aproxia Cranial nerve examination: Present: PERRL, EOMI, visual ames intact, sensory to face intact, mastication intact, no facial asymmetry is present, no dysarthria, hearing is intact symmetrically, soft palate elevates bilaterally upon phonation, flexes SCM and trapezius muscles symmetrically with full power, tongue protrudes midline, no atrophy or facial fasiculations present Cerebellar examination: Present: no dysmetria, performs finger to nose and heel to celis symmetrically without ataxia, no difficulty with rapid alternating movements Results - Laboratory Findings CBC and BMP: 08/05/18 03:44 08/05/18 03:44 Abnormal lab findings: Abnormal lab results RBC 4.07 M/mcL (4.19-5.50) L 08/05/18 03:44 Hgb 12.8 g/dL (12.9-16.9) L 08/05/18 03:44 Hct 36.7 % (37.5-50.1) L 08/05/18 03:44 PT 12.7 Seconds (9.4-12.1) H 08/04/18 07:17 Chloride 108 mEq/L (98-107) H 08/05/18 03:44 Glucose 111 mg/dL (70-105) H 08/05/18 03:44 POC Glucose 144 mg/dL (70-99) H 08/04/18 23:33 Hemoglobin A1c 6.9 % (-5.6) H 08/05/18 03:44 Urine Glucose (UA) 250 mg/dL (Normal) H 08/04/18 15:00 Consult Discharge Plan - Plan Referrals: Miguel A Akbar DO [Primary Care Provider] - 08/11/18 12:00 pm () Prescriptions: Meclizine [Antivert] 12.5 mg PO TID PRN #30 tablet PRN Reason: Dizziness
== END 2018-08-05 13:21 | disposition home or self-care (01) ==
LOC: EMEROOARM 07:04 → 3BNU 07:04
PROVIDERS: ADMIT Internal Medicine; ATTEND Internal Medicine